=== PATIENT | female | born 2000 | race Caucasian/White ===

== ENCOUNTER 2020-06-25 18:23 | Emergency (ER) | payer OTHER ==
[~2020-06-25] VITALS: Ht 175.3 cm; Wt 87.7 kg
[~2020-06-25 18:23] MED LIST: CEFTIN500 MG PO; PYRIDIUM200 M1 PO
[2020-06-25 18:30] VITALS: BP 125/65; TEMP 98.1
[2020-06-25 19:13] VITALS: PULSE 66
== END 2020-06-25 19:14 | disposition home or self-care (01) ==
LOC: COL.ER 18:23
DX: S61.213A Laceration without foreign body of left middle finger without damage to nail, initial encounter (principal); N39.0 Urinary tract infection, site not specified; W26.0XXA Contact with knife, initial encounter